=== PATIENT | male | born 1980 | race Native Hawaiian/Other Pacific Islander ===

== ENCOUNTER 2019-02-20 15:24 | Outpatient (CLI) | payer BC | END 2019-02-20 20:37 | disposition home or self-care (01) | LOC: RAD 15:24 | DX: M25.572 Pain in left ankle and joints of left foot (principal) ==

== ENCOUNTER 2019-04-23 15:00 | Outpatient (CLI) | payer BC | END 2019-04-23 23:33 | disposition home or self-care (01) | LOC: US 15:00 | DX: R60.0 Localized edema (principal) ==